=== PATIENT | female | born 1995 | race Caucasian/White ===

== ENCOUNTER 2017-01-06 19:07 | Emergency (ER) | payer OTHER | END 2017-01-06 21:59 | disposition left against medical advice (07) | LOC: ER1 19:07 | DX: Z53.21 Procedure and treatment not carried out due to patient leaving prior to being seen by health care provider (principal) | CPT/HCPCS: 81001; 87086 ==

== ENCOUNTER 2021-03-25 09:56 | Emergency (ER) | payer OTHER ==
[~2021-03-25 09:56] MED LIST: BACTROBAN OINT22 GM EXT; BENADRYL 25MG C25 MG PO; LODINE CAP 300300 MG PO; OMNICEF 300 MG300 MG PO; REGLAN10 MG PO; ZOFRAN ODT 4 MG4 MG SL
== END 2021-03-25 13:30 | disposition home or self-care (01) ==
LOC: ER1 09:56
DX: J06.9 Acute upper respiratory infection, unspecified (principal); G40.909 Epilepsy, unspecified, not intractable, without status epilepticus; Z90.49 Acquired absence of other specified parts of digestive tract; Z20.822 Contact with and (suspected) exposure to COVID-19
CPT/HCPCS: 71045; 99283; U0002

== ENCOUNTER → 2021-06-30 | Outpatient (CLI) | payer OTHER | LOC: LAB 12:31 | DX: Z32.00 Encounter for pregnancy test, result unknown (principal) | CPT/HCPCS: 36415; 84702 ==

== ENCOUNTER 2021-08-04 16:01 | Emergency (ER) | payer OTHER ==
[2021-08-04] MEDS ORDERED: AUGMENTIN 875-1 EACH PO (16:16)
== END 2021-08-04 16:21 | disposition home or self-care (01) ==
LOC: ER1 16:01
DX: K02.9 Dental caries, unspecified (principal); D64.9 Anemia, unspecified; G40.909 Epilepsy, unspecified, not intractable, without status epilepticus
CPT/HCPCS: 99282

== ENCOUNTER 2021-11-23 16:25 | Emergency (ER) | payer OTHER ==
[~2021-11-23 16:25] MED LIST changes: +AUGMENTIN 875-1 EACH PO
[2021-11-23 17:44] LABS: HEMOGLOBIN 12.7 gm/dl (12.3-15.3); RED BLOOD COUNT 3.99 M/UL (4.00-5.10); WHITE BLOOD COUNT 25.9 K/UL (4.5-11.0)
[2021-11-23 18:03] LABS: BUN/CREATININE RATIO 14 (0-10)
[2021-11-23] MEDS ORDERED: OMNICEF 300 MG300 MG PO (20:23)
[2021-11-23] MEDS ORDERED: TORADOL 10 MG T10 MG PO (20:25)
== END 2021-11-23 20:45 | disposition home or self-care (01) ==
LOC: ER1 16:25
PROVIDERS: Physician Assistant
DX: N12 Tubulo-interstitial nephritis, not specified as acute or chronic (principal); F17.290 Nicotine dependence, other tobacco product, uncomplicated
CPT/HCPCS: 80053; 81001; 83605; 84703; 85025; 87040; 87077; 87086; 87186; 96374; 96375; 99284; J0696; J1885; J2405; J7030

== ENCOUNTER 2022-02-18 07:39 | Emergency (ER) | payer OTHER | END 2022-02-18 08:55 | disposition left against medical advice (07) | LOC: ER1 07:39 | DX: Z53.21 Procedure and treatment not carried out due to patient leaving prior to being seen by health care provider (principal) ==

== ENCOUNTER → 2022-02-18 | Outpatient (CLI) | payer OTHER ==
[~2022-02-18] MED LIST changes: +TORADOL 10 MG T10 MG PO
== END ==
LOC: KOH-I 11:30
DX: G43.909 Migraine, unspecified, not intractable, without status migrainosus (principal); R56.9 Unspecified convulsions; R20.2 Paresthesia of skin
CPT/HCPCS: 70450

== ENCOUNTER → 2022-02-21 | Outpatient (CLI) | payer OTHER ==
[2022-02-21 17:15] LABS: HEMOGLOBIN 13.1 gm/dl (12.3-15.3); RED BLOOD COUNT 4.24 M/UL (4.00-5.10); WHITE BLOOD COUNT 10.8 K/UL (4.5-11.0)
[2022-02-21 17:43] LABS: BUN/CREATININE RATIO 14 (0-10)
== END ==
LOC: LAB 16:46
PROVIDERS: Family Medicine
DX: E03.9 Hypothyroidism, unspecified (principal); G43.909 Migraine, unspecified, not intractable, without status migrainosus; R56.9 Unspecified convulsions; E66.9 Obesity, unspecified; R20.2 Paresthesia of skin
CPT/HCPCS: 36415; 80053; 80061; 82607; 83735; 84439; 84443; 85027

== ENCOUNTER → 2022-02-28 | Outpatient (CLI) | payer OTHER | LOC: EMI 02-25 14:30 | DX: R56.9 Unspecified convulsions (principal); R93.0 Abnormal findings on diagnostic imaging of skull and head, not elsewhere classified; Q04.8 Other specified congenital malformations of brain; G93.5 Compression of brain | CPT/HCPCS: 70551 ==